=== PATIENT | male | born 1955 | race African-American/Black ===

== ENCOUNTER 2017-01-08 10:05 | Emergency (ER) | payer OTHER ==
[~2017-01-08] VITALS: Wt 86.0 kg
[~2017-01-08 10:05] MED LIST: ASPI-664 PO; BACTDS PO; BACTRIM PO; CEPH-443 PO; CEPH250S33 PO; GABA400C14 PO; IBUP-1542 PO; LANT3I SC; METH750T93 PO; MUPI22OI2 TOP; NOVO3I SC
[2017-01-08] MEDS ORDERED: SOD CHLORIDE 0.9% 1,000 ML IV STA (10:13)
[2017-01-08] MEDS ORDERED: DIAZEPAM 5 MG TAB PO ONE (10:30)
--- NOTE | 2017-01-08 11:49 | RADRPT ---
PROCEDURE: CT Brain without contrast. CLINICAL INDICATION: History of stroke, left arm pain TECHNIQUE: A CT of the brain was performed on a GE 64-slice CT scanner utilizing axial imaging fr om the skull base through the vertex without IV contrast. Multiplanar reformatted images were made. Images were reviewed on a PACS workstation. The CTDIvol is 42.3 mGy and the DLP is 720.23 mGycm. One or more of the following dose reduction techniques were used: automated exposure control, adjus tment of the mA and/or kV according to patient size, or use of iterative reconstruction technique. COMPARISON: 10/02/2015 , MRI 12/25/2015 FINDINGS: There is interval evolution of the right internal capsule infarct. The exam is degraded by motion. Mild periventricular white matter and pontine hypodensities are seen. There is no intracranial hemo rrhage, mass effect, or midline shift. No extra-axial fluid collection is seen. The ventricles and sulci are normal in size and configuration. The kennedy white matter differentiation appears well-prese rved. The posterior fossa is unremarkable.. The visualized paranasal sinuses and osseous structures are grossly unremarkable. IMPRESSION: 1. Limited due to motion. Chronic right internal capsule infarct. mild microvascular ischemic dise ase. RPTAT: HCNS Physician Gene Date Time Electronically viewed and signed by Physician Gene on 01/08/2017 11:48 CS/
[2017-01-08 11:52] LABS: CALCIUM 6.6 mg/dl (8.4-10.2); CREATININE 1.68 mg/dl (0.61-1.24); MAGNESIUM 1.6 mg/dl (1.7-2.5); POTASSIUM 3.8 mmol/L (3.5-5.1)
[2017-01-08] MEDS ORDERED: MAGNESIUM SULFATE 1 GM/D5W 100 ML IVPB ONE (12:00)
[2017-01-08] MEDS ORDERED: DIAZ-90 PO (12:16)
--- NOTE | 2017-01-08 12:55 | ERD ---
ER Documentation Chief Complaint Date/Time DATE: 01/08/17 TIME: 12:48 Chief Complaint C/O LEFT ARM "FEELING TENSE" X 1 HOUR HPI This is an extremely pleasant 61-year-old male with remote history of stroke with left-sided weakness who presents with a spasm of the left upper extremity. This occurred approximately 1 hour prior to arrival. The patient states over the past 24 hours he has been outside significantly trying to keep up with oral intake. He notes spasm that is moderate and intense to the left upper extremity that is intermittent. He denies any further weakness, no headache no falls or injury. ROS All systems reviewed and are negative except as per history of present illness. Medications Home Meds Active Scripts Diazepam* (Valium*) 5 Mg Tablet, 5 MG PO Q8 Y for MUSCLE SPASMS, #10 TAB Prov:JADA WAGONER MD 01/08/17 Reported Medications Insulin Aspart* (Novolog Insulin Pen*) 100 Unit/Ml Soln, 0 SC AC MEALS AND BEDTIME, EA 12/25/15 Insulin Glargine* (Lantus*) 100 Unit/Ml Soln, 25 UNIT SC QHS, #1 VIAL 10/02/15 Gabapentin* (Gabapentin*) 400 Mg Capsule, 800 MG PO TID, #180 CAP 05/15/15 Discontinued Reported Medications Aspirin (Low Dose Aspirin) 81 Mg Tablet.dr, 81 MG PO DAILY, #30 TAB 02/20/16 Discontinued Scripts Trimethoprim-Sulfamethoxazole* (Bactrim*) 400-80 Mg Tab, 1 TAB PO BID for 5 Days , #10 TAB Prov:SUJEY DIAZ PA-C 03/05/16 Cephalexin* (Cephalexin* Susp) 250 Mg/5 Ml Susp.recon, 500 MG PO Q8 for 14 Days , #1 BOTTLE Prov:SUJEY DIAZ PA-C 03/05/16 Mupirocin* (Bactroban*) 2% -22 Gram Oint...g., 1 APPLIC TOP BID for 14 Days, #1 EA 1 Refill Prov:CHARLES ROMAN MD 02/20/16 Sulfamethoxazole-Trimethoprim* (Bactrim* DS) 800-160 Mg Tab, 1 TAB PO DAILY for 14 Days, #28 TAB Prov:CHARLES ROMAN MD 02/20/16 Cephalexin* (Keflex*) 500 Mg Capsule, 500 MG PO TID for 14 Days, CAP Prov:CHARLES ROMAN MD 02/20/16 Ibuprofen* (Motrin*) 600 Mg Tab, 600 MG PO Q8, #30 TAB Prov:ANDREW LÓPEZ DO 02/13/16 Methocarbamol* (Robaxin*) 750 Mg Tablet, 750 MG PO TID, #30 TAB Prov:ANDREW LÓPEZ DO 02/13/16 Allergies Allergies: Coded Allergies: No Known Drug Allergies (Verified Allergy, Unknown, 01/08/17) PMhx/Soc History of Surgery: Yes (5th toe amputation,toe abcess) Anesthesia Reaction: No Hx Neurological Disorder: Yes (stroke october 2015) Hx Respiratory Disorders: No Hx Cardiac Disorders: No Hx Psychiatric Problems: No Hx Miscellaneous Medical Probl: Yes (DM) Hx Alcohol Use: Yes (occasional) Hx Substance Use: No Hx Tobacco Use: No Smoking Status: Never smoker FmHx Family History: No diabetes Physical Exam Vitals Vital Signs Date Time Temp Pulse Resp B/P Pulse Ox O2 Delivery O2 Flow Rate FiO2 01/08/17 10:13 98.9 79 18 129/71 99 Physical Exam General: Well developed, well nourished, no acute distress, appears to be having spasms of the left upper extremity Head: Normocephalic, atraumatic Eyes: Pupils equally reactive, EOM intact ENT: Moist mucous membranes Neck: Supple, no lymphadenopathy Respiratory: Lungs clear bilaterally, no distress Cardiovascular: RRR, no murmurs, rubs, or gallops Abdominal: Soft, non-tender, non-distended, no peritoneal signs : Deferred MSK: Baseline slight weakness to left upper extremity with apparent spasms. 2+ radial ulnar pulses, soft compartments Neurologic: Alert and oriented, moving all extremities, normal speech, no focal weakness, no cerebellar signs Skin: No rash Psych: Normal mood Result Diagram: 01/08/17 1050 Results 24 hrs Laboratory Tests Test 01/08/17 10:50 Sodium Level 143mmol/L Potassium Level 3.8mmol/L Chloride Level 117mmol/L Carbon Dioxide Level 20mmol/L Anion Gap 10 Blood Urea Nitrogen 24mg/dl Creatinine 1.68mg/dl Glucose Level 97mg/dl Calcium Level 6.6mg/dl Phosphorus Level 3.0mg/dl Magnesium Level 1.6mg/dl Current Medications Medications (Trade) Dose Ordered Sig/Mar Route PRN Reason Start Time Stop Time Status Last Admin Dose Admin Sodium Chloride (NS) 1,000 ml @ 1,000 mls/hr Q1H STAT IV 01/08/17 10:13 01/08/17 11:12 DC 01/08/17 10:19 Diazepam 5 mg 5 mg ONCE ONCE PO 01/08/17 10:30 01/08/17 10:31 DC 01/08/17 10:19 Magnesium Sulfate/ Dextrose (Magnesium Sulfate 1 Gm/D5W) 100 ml @ 100 mls/hr ONCE ONCE IVPB 01/08/17 12:00 01/08/17 12:59 01/08/17 12:17 Procedures/MDM EKG, MONITORS, & DIAGNOSTIC IMAGING: CT brain: Old infarct no acute infarcts or hemorrhage, per radiology read LAB INTERPRETATION: Hypomagnesemia, mild renal insufficiency MEDICAL DECISION MAKING: The patient presents with active spasming of the left upper extremity. This is likely secondary to hypertonicity related to his prior stroke versus dehydration. No evidence of acute stroke. ER COURSE: The patient CT brain and laboratory testing are unrevealing other than hypomagnesemia and mild renal insufficiency. The patient was given IV fluids, Valium with improved symptomatology. The patient is resting comfortably. The patient will benefit from outpatient follow-up with primary care physician. His magnesium was repleted in the emergency room. The patient was advised to continue hydration orally. I kept the patient and/or family informed of laboratory and diagnostic imaging results throughout the emergency room course. DISPOSITION PLAN: We discussed follow up with the patient's primary care doctor within 24 to 48 hours as needed. We also discussed return to the emergency room for worsening symptoms or worsening condition. Outpatient referral: [None required] Discharge Medications: Valium Departure Diagnosis: Primary Impression: Muscle spasm Additional Impressions: Acute renal insufficiency Hypomagnesemia Condition: Stable Patient Instructions: Muscle Spasm Additional Instructions: Call your primary care doctor TOMORROW for an appointment during the next 1 WEEK.Tell the ribbon sweatband operator that you were referred from this facility.See the doctor sooner or return here if your condition worsens before your appointment time. JADA WAGONER MD Jan 08, 2017 12:55
[2017-01-08 13:35] VITALS: BP 135/85; PULSE 78; RESP 20; TEMP 98.4
== END 2017-01-08 13:36 | disposition home or self-care (01) ==
LOC: E/R 10:05
DX: M62.838 Other muscle spasm (principal); N28.9 Disorder of kidney and ureter, unspecified; E83.42 Hypomagnesemia; E11.9 Type 2 diabetes mellitus without complications; R93.0 Abnormal findings on diagnostic imaging of skull and head, not elsewhere classified; Z79.4 Long term (current) use of insulin
CPT/HCPCS: 36415; 70450; 80048; 83735; 84100; 96374; J3475; J7030; Z7502; Z7610

== ENCOUNTER 2017-11-13 11:13 | Emergency (ER) | END 2017-11-13 16:07 | disposition home or self-care (01) ==

== ENCOUNTER 2018-09-27 11:37 | Inpatient (IN) | payer OTHER ==
[~2018-09-27] VITALS: Ht 167.6 cm; Wt 71.6 kg
[~2018-09-27 11:37] MED LIST changes: -ASPI-664 PO; -BACTDS PO; -BACTRIM PO; +CARI350T PO; -CEPH-443 PO; -CEPH250S33 PO; +DIAZ5TAB PO; -IBUP-1542 PO; -METH750T93 PO; -MUPI22OI2 TOP
[2018-09-27] MEDS ORDERED: SOD CHLORIDE 0.9% 500 ML IV STA (12:24)
[2018-09-27] MEDS ORDERED: LORAZEPAM 2 MG INJ ONE (12:47)
[2018-09-27] MEDS ORDERED: INSU100I33 SC (13:05)
[2018-09-27] MEDS ORDERED: ASPI-817 PO (13:05)
[2018-09-27] MEDS ORDERED: LORAZEPAM 2 MG INJ IV ONE (13:30)
[2018-09-27] MEDS ORDERED: LEVETIRACETAM 1000 MG (PMX) 100 ML IVPB ONE (13:30)
--- NOTE | 2018-09-27 14:38 | ERD ---
ER Documentation Chief Complaint Chief Complaint left sided weakness/numbness since last night HPI 62-year-old male with a history of right-sided stroke without chronic deficits, hypertension, diabetes presenting with left upper extremity and left lower extremity spasming, pain, and weakness. He states that this started this morni ng around 8 AM. When he woke up around 6 AM, he felt slightly dizzy with some neck pain. The spasms have been going on since then. His symptoms are constant, with associated posterior headache and left-sided neck pain. No alleviating or exacerbating factors. He has never experienced this before. He denies any recent neck injuries or any problems with his neck in the past. ROS All systems reviewed and are negative except as per history of present illness. Medications Home Meds Reported Medications Aspirin* (Aspirin* EC) 81 Mg Tablet.dr, 81 MG PO DAILY, TAB 09/27/18 Insulin Glargine,Hum.rec.anlog (Basaglar Kwikpen U-100) 100 Unit/1 Ml Insuln.pen, 20 UNIT SC QHS, EA 09/27/18 Discontinued Reported Medications Insulin Aspart* (Novolog Insulin Pen*) 100 Unit/Ml Soln, 0 SC AC MEALS AND BEDTIME, EA 12/25/15 Insulin Glargine* (Lantus*) 100 Unit/Ml Soln, 25 UNIT SC QHS, #1 VIAL 10/02/15 Gabapentin* (Gabapentin*) 400 Mg Capsule, 800 MG PO TID, #180 CAP 05/15/15 Discontinued Scripts Carisoprodol* (Soma*) 350 Mg Tablet, 350 MG PO TID PRN for MUSCLE SPASMS, #12 TAB Prov:CHARLES ROMAN MD 11/13/17 Diazepam* (Valium*) 5 Mg Tablet, 5 MG PO Q8 PRN for MUSCLE SPASMS, #10 TAB Prov:JADA WAGONER MD 01/08/17 Allergies Allergies: Coded Allergies: No Known Drug Allergies (Verified Allergy, Unknown, 09/27/18) PMhx/Soc History of Surgery: Yes (5th toe amputation,toe abcess) Anesthesia Reaction: No Hx Neurological Disorder: Yes (stroke october 2015) Hx Respiratory Disorders: No Hx Cardiac Disorders: No Hx Psychiatric Problems: No Hx Miscellaneous Medical Probl: Yes (DM) Hx Alcohol Use: Yes (occasional) Hx Substance Use: Yes (crack last used 3yrs ago) Hx Tobacco Use: Yes (quit 3 yrs ago) Smoking Status: Former smoker FmHx Family History: No diabetes Physical Exam Vitals Vital Signs Date Temp Pulse Resp B/P (MAP) Pulse Ox O2 O2 Flow FiO2 Time Delivery Rate 09/27/18 114 18 144/99 99 Room Air 14:41 (114) 09/27/18 Nasal 2.0 13:15 Cannula 09/27/18 98.2 110 16 149/85 100 Room Air 13:15 (106) 09/27/18 Nasal 2 13:15 Cannula 09/27/18 97.6 125 22 156/78 99 11:40 (104) Physical Exam Const: No acute distress Head: Atraumatic Eyes: Normal Conjunctiva, PERRLA, EOMI, no nystagmus ENT: Normal External Ears, Nose and Mouth. Neck: Full range of motion. No meningismus. No cervical spine or paraspinal muscle tenderness. Resp: Clear to auscultation bilaterally Cardio: Regular rate and rhythm, no murmurs. 2+ distal pulses in all 4 extremities. Abd: Soft, non tender, non distended. Normal bowel sounds Skin: No petechiae or rashes Back: No midline or flank tenderness Ext: No cyanosis, or edema Neur: Awake and alert, oriented x3, no facial asymmetry, normal speech, cranial nerves intact. Increased tone in left upper and left lower extremity with apparent spasming of his fingers. Rigidity with passive range of motion of left upper and left lower extremity. Right upper and right lower extremity 5 out of 5 strength, normal tone, intact sensations. Psych: Normal Mood and Affect Result Diagram: 09/27/18 1257 09/27/18 1257 Results 24 hrs Laboratory Tests Test 09/27/18 12:56 09/27/18 12:57 09/27/18 13:31 Urine Color YELLOW Urine Clarity CLEAR Urine pH 5.0 Urine Specific [place] 1.012 Urine Ketones NEGATIVE mg/dL Urine Nitrite NEGATIVE mg/dL Urine Bilirubin NEGATIVE mg/dL Urine Urobilinogen NEGATIVE mg/dL Urine Leukocyte Esterase NEGATIVE Kaye/ul Urine Hemoglobin NEGATIVE mg/dL Urine Glucose NEGATIVE mg/dL Urine Total Protein NEGATIVE mg/dl Urine Opiates Screen NEGATIVE Urine Barbiturates NEGATIVE Urine Amphetamines Screen NEGATIVE Urine Benzodiazepines Screen NEGATIVE Urine Cocaine Screen NEGATIVE Urine Cannabinoids POSITIVE White Blood Count 9.9 10^3/ul Red Blood Count 3.28 10^6/ul Hemoglobin 10.0 g/dl Hematocrit 30.5 % Mean Corpuscular Volume 93.0 fl Mean Corpuscular Hemoglobin 30.5 pg Mean Corpuscular 32.8 g/dl Hemoglobin Concent Red Cell Distribution Width 12.7 % Platelet Count 412 10^3/UL Mean Platelet Volume 9.9 fl Immature Granulocytes % 0.400 % Neutrophils % 67.0 % Lymphocytes % 25.4 % Monocytes % 4.9 % Eosinophils % 1.5 % Basophils % 0.8 % Nucleated Red Blood Cells % 0.0 /100WBC Immature Granulocytes # 0.040 10^3/ul Neutrophils # 6.6 10^3/ul Lymphocytes # 2.5 10^3/ul Monocytes # 0.5 10^3/ul Eosinophils # 0.2 10^3/ul Basophils # 0.1 10^3/ul Nucleated Red Blood Cells # 0.0 10^3/ul Prothrombin Time 11.7 Sec Prothrombin Time Ratio 0.9 INR International 0.85 Normalized Ratio Activated Partial Thromboplast 27.0 Sec Time Sodium Level 139 mmol/L Potassium Level 4.4 mmol/L Chloride Level 103 mmol/L Carbon Dioxide Level 28 mmol/L Anion Gap 8 Blood Urea Nitrogen 24 mg/dl Creatinine 1.98 mg/dl Est Glomerular Filtrat 42 mL/min Rate mL/min Glucose Level 93 mg/dl Hemoglobin A1c 6.9 % Calcium Level 8.8 mg/dl Total Bilirubin 0.3 mg/dl Direct Bilirubin 0.00 mg/dl Indirect Bilirubin 0.3 mg/dl Aspartate Amino 23 IU/L Transf (AST/SGOT) Alanine 25 IU/L Aminotransferase (ALT/SGPT) Alkaline Phosphatase 92 IU/L Troponin I < 0.012 ng/ml Total Protein 7.2 g/dl Albumin 3.8 g/dl Globulin 3.40 g/dl Albumin/Globulin Ratio 1.11 Triglycerides Level 65 mg/dl Cholesterol Level 131 mg/dl LDL Cholesterol, Calculated 65 mg/dl HDL Cholesterol 53 mg/dl Cholesterol/HDL Ratio 2.4 RATIO Bedside Glucose 77 mg/dL Current Medications Medications Dose Sig/Mar Start Time Status Last (Trade) Ordered Route PRN Stop Time Admin Dose Reason Admin Sodium 500 ml @ Q1H STAT 09/27/18 DC 09/27/18 Chloride 500 mls/hr IV 12:24 13:40 09/27/18 13:23 Lorazepam 2 mg STK-MED 09/27/18 DC (Ativan) ONCE .ROUTE 12:47 09/27/18 12:48 Lorazepam 2 mg ONCE ONCE 09/27/18 DC 09/27/18 (Ativan) IV 13:30 13:41 09/27/18 13:31 100 ml @ ONCE ONCE 09/27/18 DC 09/27/18 Levetiracetam 400 mls/hr IVPB 13:30 13:40 09/27/18 13:44 Ondansetron 4 mg ER BRIDGE 09/27/18 HCl (Zofran PRN IV 15:00 Inj) NAUSEA/VOMITI 09/28/18 14:59 NG 650 mg ER BRIDGE 09/27/18 Acetaminophen PRN PO 15:00 (Tylenol .MILD PAIN 09/28/18 14:59 Tab) 1-3 OR TEMP Procedures/MDM EMERGENT LABS AND DIAGNOSTIC STUDIES: Lab Results above were reviewed and interpreted by me. CBC: Mild chronic anemia, no evidence of infection CMP: Elevated BUN and creatinine, which seems to be chronic renal insufficiency. No evidence of clinically significant electrolyte abnormality, acidosis, acute renal failure, hypoglycemia, liver disease, or biliary obstruction Troponin within normal limits, not indicative of cardiac ischemia 12-lead EKG was interpreted by Shruti Horton MD: Sinus tachycardia with ventricular rate of 111 beats per minute Normal axis Normal intervals No acute ST or T wave changes suggestive of acute ischemia or STEMI. Radiology Results as interpreted by Radiology below were reviewed by SHui Horton MD: Chest x-ray shows no acute abnormalities CT brain shows no acute abnormalities, old strokes noted on right Initial Nursing notes reviewed. Previous Medical Records requested via the Electronic Health Record. EMERGENCY DEPARTMENT COURSE / MEDICAL DECISION MAKING: Patient is presenting with left-sided neck pain and upper and lower extremity spasming. Exam is not consistent with stroke. Differential includes but is not limited to cervical radiculopathy, focal seizures, muscle spasms. I spoke with the tele-neurologist on-call, who evaluated the patient. She also does not feel that this is an acute stroke. She recommended 2 mg IV of Ativan with resolution of the patient's symptoms. She feels that this is most likely a focal seizure secondary to old stroke. She recommended 1 g IV Keppra now and 500 mg twice daily with admission for MRI and EEG. Critical Care Time: 35 minutes Treatments/Evaluations: Close monitoring and treatment of unstable vital signs, cardiorespiratory, and neurologic status, while maintaining tight balance of fluid, respiratory, and cardiac interventions. This time includes discussing the case with the patient and the patients family. This time does not include all procedures stated elsewhere in this record. This time also includes reviewing old records, labs and radiological studies. This time includes examining and re- examining the patient. Additionally, this time also includes arranging care with admitting and consulting physicians. Accepting Care Team: Current data and ongoing care discussed. Time: Time of admission Primary Provider: Dr. Salazar Consulting: Dr. Tovar with tele-neurology Outstanding Data: none Departure Diagnosis: Primary Impression: New onset seizure Additional Impressions: Focal motor seizure History of stroke Chronic renal insufficiency Chronic kidney disease stage: unspecified stage Qualified Codes: N18.9 - Chronic kidney disease, unspecified Condition: Serious JORDYN HORTON MD September 27, 2018 14:38
[2018-09-27] MEDS ORDERED: ACETAMINOPHEN 325 MG TAB PO PRN ×2 (15:00→17:00)
[2018-09-27] MEDS ORDERED: ONDANSETRON 4 MG INJ IV PRN ×2 (15:00→17:00)
--- NOTE | 2018-09-27 15:13 | STROKE ---
Date/Time of Note Date/Time of Note DATE: 09/27/18 TIME: 15:06 Patient Information General Patient location: emergency Arrival Date Age 62 Gender male Weight 71 kg POC Glucose Glucose Result Bedside Glucose - 72 Hours Test 09/27/18 13:31 Bedside Glucose 77 mg/dL (70-220) Vital Signs Vital Signs Vital Signs Date Temp Pulse Resp B/P (MAP) Pulse Ox O2 O2 Flow FiO2 Time Delivery Rate 09/27/18 114 18 144/99 99 Room Air 14:41 (114) 09/27/18 2.0 13:15 09/27/18 98.2 13:15 Patient History Past Medical History Stroke Current Medications Allergies: Coded Allergies: No Known Drug Allergies (Verified Allergy, Unknown, 09/27/18) Labs Coagulation Labs: Coagulation Test 09/27/18 12:57 Activated Partial Thromboplast Time 27.0 Sec (23.0-35.0) History & Physical Patient History Notes Pt Hx Reviewed History of Present Illness 62yo M DM, HTN, h/o CVA with left sided weakness, walks with cane, presents with left sided neck pain since this morning and left sided body spasm and pain since 8am. Review of Systems Constitutional: no symptoms reported EENTM: no symptoms reported Respiratory: no symptoms reported Cardiovascular: no symptoms reported Gastrointestinal: no symptoms reported Genitourinary: no symptoms reported Musculoskeletal: no symptoms reported Skin: no symptoms reported Psychiatric/Neurological: no symptoms reported All Other Systems: Reviewed and Negative NIH Stroke Scale NIH Stroke Scale [id number] l4d LOC Questions: Wflid8q LOC Commands: Voeor3s t Gaze: Jyvkr0i Jjyfd8p alsy: Ladzj3d rm - Left: Ogzdf3a t: Lqyub9w eft: Xujpw0w t: Xcirp9w Zioqh4z Jkkwc0v est Language: Tikng7g tonya: Ilbhd7a Ejbjv1f 4Bd Total Score: Xfehj8o Date/Time Recorded DATE: 09/27/18 TIME: 15:06 Submitted By Renea Tovar t-PA Imaging Review Imaging Reviewed: Yes Date/Time Imaging Reviewed DATE: 09/27/18 TIME: 15:06 Imaging Findings chronic ischemic changes t-PA Administration Recommendation: No Weight 71 kg Recommedation submitted by Renae Tovar Reason t-PA not Recommended outside time window t-PA Not Recommended Date/Time 12:40 09/27/18 Recommendations Impression Diagnosis focal seizure with status epilepticus Recommendation 62yo M presents with acute onset left sided weakness, pain, and spasms. Neurological exam is notable for left arm and leg drift, left arm and leg spasticity, left face, arm, and leg numbness. I believe the patient is having a focal seizure, in partial status epilepticus. I recommended and patient was administered total Ativan 2mg IV, and patient's weakness and spasticity improved significantly. I recommend further workup include MRI Brain with and without gadolinium, MRA of the head without gadolinium, MRA of the neck with gadolinium, transthoracic echocardiogram, and EEG. I recommend Keppra 1000mg IV x 1 then 500mg BID. [id number] Diagnostic Labs: Ftfdt3a Lipid Proile Hgb A1C CMP CBC w/Diff Coags [id number] Therapy: Vlwnn0w Physical Therapy Speech Therapy Occupational Therapy [id number] [facility] Recommendations: Jmbdz7y Bedside Swallow Evaluation Pnumatic Compression Devices Stroke Education Smoking Education RENEA TOVAR September 27, 2018 15:13
--- NOTE | 2018-09-27 16:43 | HP ---
Date/Time of Note Date/Time of Note DATE: 09/27/18 TIME: 16:38 Assessment/Plan VTE Prophylaxis Pharmacological prophylaxis: LMWH Lines/Catheters IV Catheter Type (from Nrs): Peripheral IV Assessment/Plan Hospital Course 1. Left arm spasms and weakness CT brain shows chronic small vessel ischemia and chronic right thalamic and internal capsule lacunar infarcts Rule out seizures, EEG and MRI recommended per tele-neurology Neurology consultation obtained Aspirin, statin Echo and carotid ultrasound 2. Diabetes Sliding scale 3. Acute kidney injury for CKD Patient does appear clinically dry, IV fluids 4. Normocytic anemia like secondary chronic disease Prophylaxis: Lovenox Result Diagram: 09/27/18 1257 09/27/18 1257 Results 24hrs Laboratory Tests Test 09/27/18 12:56 09/27/18 12:57 09/27/18 13:31 Urine Color YELLOW Urine Clarity CLEAR Urine pH 5.0 Urine Specific [place] 1.012 Urine Ketones NEGATIVE Urine Nitrite NEGATIVE Urine Bilirubin NEGATIVE Urine Urobilinogen NEGATIVE Urine Leukocyte Esterase NEGATIVE Urine Hemoglobin NEGATIVE Urine Glucose NEGATIVE Urine Total Protein NEGATIVE Urine Opiates Screen NEGATIVE Urine Barbiturates NEGATIVE Urine Amphetamines Screen NEGATIVE Urine Benzodiazepines Screen NEGATIVE Urine Cocaine Screen NEGATIVE Urine Cannabinoids POSITIVE White Blood Count 9.9 Red Blood Count 3.28 L Hemoglobin 10.0 L Hematocrit 30.5 L Mean Corpuscular Volume 93.0 Mean Corpuscular Hemoglobin 30.5 Mean Corpuscular Hemoglobin Concent 32.8 Red Cell Distribution Width 12.7 Platelet Count 412 Mean Platelet Volume 9.9 Immature Granulocytes % 0.400 Neutrophils % 67.0 Lymphocytes % 25.4 Monocytes % 4.9 Eosinophils % 1.5 Basophils % 0.8 Nucleated Red Blood Cells % 0.0 Immature Granulocytes # 0.040 H Neutrophils # 6.6 Lymphocytes # 2.5 Monocytes # 0.5 Eosinophils # 0.2 Basophils # 0.1 Nucleated Red Blood Cells # 0.0 Prothrombin Time 11.7 L Prothrombin Time Ratio 0.9 INR International Normalized Ratio 0.85 Activated Partial Thromboplast Time 27.0 Sodium Level 139 Potassium Level 4.4 Chloride Level 103 Carbon Dioxide Level 28 Anion Gap 8 Blood Urea Nitrogen 24 H Creatinine 1.98 H Est Glomerular Filtrat Rate mL/min 42 L Glucose Level 93 Hemoglobin A1c 6.9 H Calcium Level 8.8 Total Bilirubin 0.3 Direct Bilirubin 0.00 Indirect Bilirubin 0.3 Aspartate Amino Transf (AST/SGOT) 23 Alanine Aminotransferase (ALT/SGPT) 25 Alkaline Phosphatase 92 Troponin I < 0.012 Total Protein 7.2 Albumin 3.8 Globulin 3.40 H Albumin/Globulin Ratio 1.11 Triglycerides Level 65 Cholesterol Level 131 LDL Cholesterol, Calculated 65 HDL Cholesterol 53 Cholesterol/HDL Ratio 2.4 Bedside Glucose 77 HPI/ROS Admit Date/Time Admit Date/Time September 27, 2018 Hx of Present Illness Patient is a 62-year-old male with history of CVA and diabetes. Patient reportedly had shaking of his left arm earlier today, telemetry neurology was consulted in the ER and recommendation was EEG and MRI to evaluate for possible stroke. Patient states that he does not recall the episode occurring and denies confusion after the shaking. Patient does report residual weakness in the left arm. Patient denies any history of seizures. Patient has no other complaints this time. ROS Constitutional: no complaints, improved Eyes: no complaints ENT: no complaints Respiratory: no complaints Cardiovascular: no complaints Gastrointestinal: no complaints Genitourinary: no complaints Musculoskeletal: no complaints Skin: no complaints Neurologic: focal-weakness (Left arm) Endocrine: no complaints Lymphatic: no complaints Psychological: no complaints, nl mood/affect Immunologic: no complaints PMH/Family/Social Past Medical History As per HPI Medications Current Medications Ondansetron HCl (Zofran Inj) 4 mg ER BRIDGE PRN IV NAUSEA/VOMITING; Start 09/27/18 at 15:00; Stop 09/28/18 at 14:59 Acetaminophen (Tylenol Tab) 650 mg ER BRIDGE PRN PO .MILD PAIN 1-3 OR TEMP; Start 09/27/18 at 15:00; Stop 09/28/18 at 14:59 Coded Allergies: No Known Drug Allergies (Verified Allergy, Unknown, 09/27/18) Past Surgical History Past Surgical Hx: no surgical history Family History Significant Family History: no pertinent family hx Social History Alcohol Use: rarely Smoking Status: Former smoker Drug Use: none Exam/Review of Systems Vital Signs Vitals Vital Signs Date Temp Pulse Resp B/P (MAP) Pulse Ox O2 O2 Flow FiO2 Time Delivery Rate 09/27/18 114 18 144/99 99 Room Air 14:41 (114) 09/27/18 2.0 13:15 09/27/18 98.2 13:15 Exam Constitutional: alert, oriented Respiratory: clear to auscultation Cardiovascular: regular rate and rhythm Gastrointestinal: soft; No distended Musculoskeletal: nl extremities to inspection PASHA BRADEN September 27, 2018 16:42
[2018-09-27] MEDS ORDERED: DOCUSATE SODIUM 100 MG CAP PO PRN (17:00)
[2018-09-27] MEDS ORDERED: ZOLPIDEM 5 MG TAB PO PRN (17:00)
[2018-09-27] MEDS ORDERED: NACL 0.9% 3 ML SYG IV SCH (17:00)
[2018-09-27] MEDS ORDERED: HYDROCODONE/APAP (5/325) TAB PO PRN (17:00)
[2018-09-27] MEDS ORDERED: GLUCAGON 1 MG INJ IM PRN (17:30)
[2018-09-27] MEDS ORDERED: GLUCOSE GEL 15 GRAM TUBE BUCCAL PRN (17:30)
[2018-09-27] MEDS ORDERED: DEXTROSE 50% 50 ML SYRINGE IV PRN ×2 (17:30)
[2018-09-27] MEDS ORDERED: GLUCOSE GEL 15 GRAM TUBE PO PRN ×2 (17:30)
[2018-09-27] MEDS: INSULIN ASPART [NOVOLOG] 3 ML PEN SC SCH ×2 (17:50→21:19)
[2018-09-27 17:51] VITALS: BP 189/111; PULSE 111; RESP 20
[2018-09-27 17:59] VITALS: Ht 167.6 cm; Wt 71.6 kg
[2018-09-27] MEDS: SOD CHLORIDE 0.9% 1,000 ML IV SCH (18:03)
[2018-09-27] MEDS ORDERED: LABETALOL HCL 20MG INJ IV PRN (18:30)
[2018-09-27 18:50] VITALS: BP 156/74; PULSE 116
[2018-09-27 20:00] VITALS: PULSE 107
[2018-09-27 20:39] VITALS: BP 152/74; PULSE 106; RESP 18
[2018-09-27] MEDS ORDERED: INSULIN GLARGINE [LANtus] 3 ML PEN SC SCH (21:00)
[2018-09-27] MEDS: morphine 2 MG INJ IV PRN (21:18)
[2018-09-28] VITALS (8 sets, daily range): BP systolic 118–167; BP diastolic 60–88; PULSE 97–113; RESP 16–18
[2018-09-28] MEDS ORDERED: ACCU-CHEK XX SCH (02:00)
[2018-09-28] MEDS: SOD CHLORIDE 0.9% 1,000 ML IV SCH (03:08)
--- NOTE | 2018-09-28 06:43 | EEG ---
EEG NOTE Report Details DATE OF TEST: 09/27/18 HISTORY: The patient is a 62-year-old M who presents with arm shaking and weakness. This EEG is requested to evaluate for an epileptic disorder. SEDATION: None. CONDITIONS OF RECORDING: This EEG was recorded digitally on the [employer] machine, using the International 10-20 System of electrodes plus anterior temporals and [place]. STATES SAMPLED: Wakefulness and drowsiness. FINDINGS: During wakefulness, there is a 9 Hz posterior dominant rhythm, which attenuates normally with eye opening. There is a normal [id number] frequency-amplitude gradient. The remainder of the awake background is normal. Photic stimulation does not elicit any definite driving responses or e pileptiform discharges. Hyperventilation was not performed. The patient became drowsy but did not pass into sleep. No asymmetries, focal abnormalities or epileptiform discharges were seen. IMPRESSION: Normal electroencephalogram during wakefulness and drowsiness. COMMENT: A normal EEG does not of itself rule out an epileptic disorder, especially if sleep is not captured, but may decrease the probability of one depending on clinical context. EM RODRIGES September 28, 2018 06:43
[2018-09-28] MEDS: INSULIN ASPART [NOVOLOG] 3 ML PEN SC SCH ×2 (07:55→11:50)
[2018-09-28] MEDS: morphine 2 MG INJ IV PRN (08:46)
[2018-09-28] MEDS ORDERED: ENOXAPARIN 40 MG/0.4 ML SYG SC SCH (09:00)
[2018-09-28] MEDS ORDERED: ASPIRIN (EC) 81 MG TAB PO SCH (09:00)
--- NOTE | 2018-09-28 12:09 | CONS ---
Assessment/Plan Assessment/Plan Hospital Course 62 yo M with hx of CVA and multiple other comorbidities who presents for evaluation of episodic L arm shaking and weakness... for which neurology is consulted. The clinical picture could be consistent with focal motor seizures. MRI brain is without acute intracranial pathology, though notable for old R thalamic and internal capsule infarcts. EEG is unrevealing. P: Start empiric trial of trileptal 300mg BID for at least 3 months Ativan IV PRN prolonged seizure or for cluster PT/OT as necessary Other medical management per primary Will follow clinically Consultation Date/Type/Reason Admit Date/Time September 27, 2018 Type of Consult Neurology Requesting Provider: PASHA BRADEN Date/Time of Note DATE: 09/28/18 TIME: 12:09 Hx of Present Illness 62 yo M with hx of CVA and diabetes who presented to the ED with complaints of L arm shaking and weakness. History was obtained from pt and chart review. He continues to endorse L arm weakness. Denies other focal sx currently. It is additionally elsewhere noted: Hx of Present Illness Patient is a 62-year-old male with history of CVA and diabetes. Patient reportedly had shaking of his left arm earlier today, telemetry neurology was consulted in the ER and recommendation was EEG and MRI to evaluate for possible stroke. Patient states that he does not recall the episode occurring and denies confusion after the shaking. Patient does report residual weakness in the left arm. Patient denies any history of seizures. Patient has no other complaints this time. negative unless noted otherwise in HPI Exam/Review of Systems Exam Vitals Vital Signs Date Temp Pulse Resp B/P (MAP) Pulse Ox O2 O2 Flow FiO2 Time Delivery Rate 09/28/18 98.0 110 18 167/77 99 Room Air 11:29 (107) 09/27/18 2.0 13:15 Intake and Output 09/27/18 09/27/18 09/28/18 1515:00 23:00 07:00 IntakeIntake Total 600 ml 1500 ml OutputOutput Total 600 ml BalanceBalance 0 ml 1500 ml Exam PE: Gen Appearance: No Apparent Distress HEENT: Normocephalic Cardiovascular: Regular rate Lungs: Clear bilaterally Abdomen: Soft Extremities: Dry NE: The patient was alert and oriented. Language was normal. Fund of knowledge was normal. Pupils were equal and reactive to light. There was no afferent pupillary defect. Visual benson were normal. Funduscopic examination was limited. Extra-ocular movements were full. Ptosis was absent. There was no nystagmus. Facial sensation was normal. Face was symmetric with normal strength. Hearing was intact. Palate movements were normal. Neck strength was normal. There was normal tongue bulk and speed of movement. Tone was normal. Muscle bulk was normal. I did not see fasciculations. Arms and legs were weak on the L Vibration sensation was trevor was diminished on the L. Temperature and pinprick sensation was normal. Rapid alternating movements were normal. There was no dysmetria. There was no intention tremor. Gait was deferred due to bedrest. Arm and leg reflexes were 2+ and symmetric. Merino's sign was absent. Plantar responses were flexor. Results Result Diagram: 09/28/1862109/28/18 06 Results 24hrs Laboratory Tests Test 09/27/18 12:56 09/27/18 12:57 09/27/18 13:31 09/27/18 17:47 Urine Color YELLOW Urine Clarity CLEAR Urine pH 5.0 Urine Specific 1.012 [place] Urine Ketones NEGATIVE Urine Nitrite NEGATIVE Urine Bilirubin NEGATIVE Urine Urobilinogen NEGATIVE Urine Leukocyte NEGATIVE Esterase Urine Hemoglobin NEGATIVE Urine Glucose NEGATIVE Urine Total Protein NEGATIVE Urine Opiates Screen NEGATIVE Urine Barbiturates NEGATIVE Urine Amphetamines NEGATIVE Screen Urine NEGATIVE Benzodiazepines Screen Urine Cocaine Screen NEGATIVE Urine Cannabinoids POSITIVE White Blood Count 9.9 Red Blood Count 3.28 L Hemoglobin 10.0 L Hematocrit 30.5 L Mean Corpuscular 93.0 Volume Mean Corpuscular 30.5 Hemoglobin Mean Corpuscular 32.8 Hemoglobin Concent Red Cell 12.7 Distribution Width Platelet Count 412 Mean Platelet Volume 9.9 Immature 0.400 Granulocytes % Neutrophils % 67.0 Lymphocytes % 25.4 Monocytes % 4.9 Eosinophils % 1.5 Basophils % 0.8 Nucleated Red Blood 0.0 Cells % Immature 0.040 H Granulocytes # Neutrophils # 6.6 Lymphocytes # 2.5 Monocytes # 0.5 Eosinophils # 0.2 Basophils # 0.1 Nucleated Red Blood 0.0 Cells # Prothrombin Time 11.7 L Prothrombin Time 0.9 Ratio INR International 0.85 Normalized Ratio Activated 27.0 Partial Thromboplast Time Sodium Level 139 Potassium Level 4.4 Chloride Level 103 Carbon Dioxide Level 28 Anion Gap 8 Blood Urea Nitrogen 24 H Creatinine 1.98 H Est Glomerular 42 L Filtrat Rate mL/min Glucose Level 93 Hemoglobin A1c 6.9 H Calcium Level 8.8 Total Bilirubin 0.3 Direct Bilirubin 0.00 Indirect Bilirubin 0.3 Aspartate Amino 23 Transf (AST/SGOT) Alanine 25 Aminotransferase (AL T/SGPT) Alkaline Phosphatase 92 Troponin I < 0.012 Total Protein 7.2 Albumin 3.8 Globulin 3.40 H Albumin/Globulin 1.11 Ratio Triglycerides Level 65 Cholesterol Level 131 LDL Cholesterol, 65 Calculated HDL Cholesterol 53 Cholesterol/HDL 2.4 Ratio Bedside Glucose 77 137 Test 09/27/18 21:10 09/28/18 02:37 09/28/18 06:22 09/28/18 07:52 Bedside Glucose 193 98 57 L White Blood Count 10.2 Red Blood Count 3.19 L Hemoglobin 9.7 L Hematocrit 29.6 L Mean Corpuscular 92.8 Volume Mean Corpuscular 30.4 Hemoglobin Mean Corpuscular 32.8 Hemoglobin Concent Red Cell 12.3 Distribution Width Platelet Count 389 Mean Platelet Volume 9.2 Immature 0.400 Granulocytes % Neutrophils % 63.2 Lymphocytes % 27.6 Monocytes % 6.4 Eosinophils % 1.7 Basophils % 0.7 Nucleated Red Blood 0.0 Cells % Immature 0.040 H Granulocytes # Neutrophils # 6.5 Lymphocytes # 2.8 Monocytes # 0.7 Eosinophils # 0.2 Basophils # 0.1 Nucleated Red Blood 0.0 Cells # Sodium Level 140 Potassium Level 4.9 Chloride Level 107 Carbon Dioxide Level 28 Anion Gap 5 Blood Urea Nitrogen 21 H Creatinine 1.83 H Est Glomerular 46 L Filtrat Rate mL/min Glucose Level 63 #L Hemoglobin A1c 7.1 H Calcium Level 8.8 Phosphorus Level 3.8 Magnesium Level 1.7 Test 09/28/18 08:36 09/28/18 08:53 09/28/18 11:34 Bedside Glucose 151 177 107 Medications Medication Current Medications Sodium Chloride 1,000 ml @ 100 mls/hr Q10H IV Last administered on 09/28/18at 03:08; Admin Dose 100 MLS/HR; Start 09/27/18 at 16:38 IV Flush (NS 3 ml) 3 ml PER PROTOCOL IV ; Start 09/27/18 at 17:00 Ondansetron HCl (Zofran Inj) 4 mg Q6H PRN IV NAUSEA/VOMITING; Start 09/27/18 at 17:00 Acetaminophen (Tylenol Tab) 650 mg Q6H PRN PO .PAIN 1-3 OR TEMP; Start 09/27/18 at 17:00 Acetaminophen/ Hydrocodone Bitart ([place] (5/325)) 1 tab Q6H PRN PO .MOD PAIN 4- 6; Start 09/27/18 at 17:00 Morphine Sulfate (morphine) 2 mg Q4H PRN IV .SEVERE PAIN 7-10 Last administered on 09/28/18at 08:46; Admin Dose 2 MG; Start 09/27/18 at 17:00 Docusate Sodium (Colace) 100 mg Q12H PRN PO .CONSTIPATION; Start 09/27/18 at 17:00 Zolpidem Tartrate (Ambien) 5 mg QHS PRN PO .INSOMNIA Last administered on at 01:44; Admin Dose 5 MG; Start 09/27/18 at 17:00 Enoxaparin Sodium (Lovenox) 40 mg DAILY SC Last administered on 09/28/18at 08:55; Admin Dose 40 MG; Start 09/28/18 at 09:00 Aspirin (Halfprin) 81 mg DAILY PO Last administered on 09/28/18at 08:46; Admin Dose 81 MG; Start 09/28/18 at 09:00 Insulin Glargine (Lantus) 20 unit QHS SC Last administered on 09/27/18at 21:16; Admin Dose 20 UNIT; Start 09/27/18 at 21:00 Diagnostic Test (Pha) (Accu-Chek) 1 ea 02 XX Last administered on 09/28/18at 02: 41; Admin Dose 1 EA; Start 09/28/18 at 02:00 Insulin Aspart (Novolog Insulin Pen) NOVOLOG *MILD* ALGORITHM WITH MEALS BEDTIME SC Last administered on 09/27/18at 21:19; Admin Dose 1 UNIT; Start 09/27/18 at 17:55 Miscellaneous Information 1 ea NOTE XX ; Start 09/27/18 at 17:30 Glucose (Glutose) 15 gm Q15M PRN PO DECREASED GLUCOSE; Start 09/27/18 at 17:30 Glucose (Glutose) 22.5 gm Q15M PRN PO DECREASED GLUCOSE; Start 09/27/18 at 17:30 Dextrose (D50w Syringe) 25 ml Q15M PRN IV DECREASED GLUCOSE; Start 09/27/18 at 17:30 Dextrose (D50w Syringe) 50 ml Q15M PRN IV DECREASED GLUCOSE; Start 09/27/18 at 17:30 Glucagon (Glucagen) 1 mg Q15M PRN IM DECREASED GLUCOSE; Start 09/27/18 at 17:30 Glucose (Glutose) 15 gm Q15M PRN BUCCAL DECREASED GLUCOSE; Start 09/27/18 at 17:30 Labetalol HCl (Labetalol) 20 mg Q4H WHILE AWAKE PRN IV ELEVATED BLOOD PRESSURE Last administered on 09/27/18at 18:33; Admin Dose 20 MG; Start 09/27/18 at 18:30 Past Medical History reviewed Home Meds Reported Medications Aspirin* (Aspirin* EC) 81 Mg Tablet.dr, 81 MG PO DAILY, TAB 09/27/18 Insulin Glargine,Hum.rec.anlog (Basaglar Kwikpen U-100) 100 Unit/1 Ml Insuln.pen, 20 UNIT SC QHS, EA 09/27/18 Discontinued Reported Medications Insulin Aspart* (Novolog Insulin Pen*) 100 Unit/Ml Soln, 0 SC AC MEALS AND BEDTIME, EA 12/25/15 Insulin Glargine* (Lantus*) 100 Unit/Ml Soln, 25 UNIT SC QHS, #1 VIAL 10/02/15 Gabapentin* (Gabapentin*) 400 Mg Capsule, 800 MG PO TID, #180 CAP 05/15/15 Discontinued Scripts Carisoprodol* (Soma*) 350 Mg Tablet, 350 MG PO TID PRN for MUSCLE SPASMS, #12 TAB Prov:CHARLES ROMAN MD 11/13/17 Diazepam* (Valium*) 5 Mg Tablet, 5 MG PO Q8 PRN for MUSCLE SPASMS, #10 TAB Prov:JADA WAGONER MD 01/08/17 Medications Current Medications Sodium Chloride 1,000 ml @ 100 mls/hr Q10H IV Last administered on 09/28/18at 03:08; Admin Dose 100 MLS/HR; Start 09/27/18 at 16:38 IV Flush (NS 3 ml) 3 ml PER PROTOCOL IV ; Start 09/27/18 at 17:00 Ondansetron HCl (Zofran Inj) 4 mg Q6H PRN IV NAUSEA/VOMITING; Start 09/27/18 at 17:00 Acetaminophen (Tylenol Tab) 650 mg Q6H PRN PO .PAIN 1-3 OR TEMP; Start 09/27/18 at 17:00 Acetaminophen/ Hydrocodone Bitart ([place] (5/325)) 1 tab Q6H PRN PO .MOD PAIN 4- 6; Start 09/27/18 at 17:00 Morphine Sulfate (morphine) 2 mg Q4H PRN IV .SEVERE PAIN 7-10 Last administered on 09/28/18at 08:46; Admin Dose 2 MG; Start 09/27/18 at 17:00 Docusate Sodium (Colace) 100 mg Q12H PRN PO .CONSTIPATION; Start 09/27/18 at 17:00 Zolpidem Tartrate (Ambien) 5 mg QHS PRN PO .INSOMNIA Last administered on 09/28/18at 01:44; Admin Dose 5 MG; Start 09/27/18 at 17:00 Enoxaparin Sodium (Lovenox) 40 mg DAILY SC Last administered on 09/28/18at 08:55; Admin Dose 40 MG; Start 09/28/18 at 09:00 Aspirin (Halfprin) 81 mg DAILY PO Last administered on 09/28/18at 08:46; Admin Dose 81 MG; Start 09/28/18 at 09:00 Insulin Glargine (Lantus) 20 unit QHS SC Last administered on 09/27/18at 21:16; Admin Dose 20 UNIT; Start 09/27/18 at 21:00 Diagnostic Test (Pha) (Accu-Chek) 1 ea 02 XX Last administered on 09/28/18at 02:41; Admin Dose 1 EA; Start 09/28/18 at 02:00 Insulin Aspart (Novolog Insulin Pen) NOVOLOG *MILD* ALGORITHM WITH MEALS BEDTIME SC Last administered on 09/27/18at 21:19; Admin Dose 1 UNIT; Start 09/27/18 at 17:55 Miscellaneous Information 1 ea NOTE XX ; Start 09/27/18 at 17:30 Glucose (Glutose) 15 gm Q15M PRN PO DECREASED GLUCOSE; Start 09/27/18 at 17:30 Glucose (Glutose) 22.5 gm Q15M PRN PO DECREASED GLUCOSE; Start 09/27/18 at 17:30 Dextrose (D50w Syringe) 25 ml Q15M PRN IV DECREASED GLUCOSE; Start 09/27/18 at 17:30 Dextrose (D50w Syringe) 50 ml Q15M PRN IV DECREASED GLUCOSE; Start 09/27/18 at 17:30 Glucagon (Glucagen) 1 mg Q15M PRN IM DECREASED GLUCOSE; Start 09/27/18 at 17:30 Glucose (Glutose) 15 gm Q15M PRN BUCCAL DECREASED GLUCOSE; Start 09/27/18 at 17:30 Labetalol HCl (Labetalol) 20 mg Q4H WHILE AWAKE PRN IV ELEVATED BLOOD PRESSURE Last administered on 09/27/18at 18:33; Admin Dose 20 MG; Start 09/27/18 at 18:30 Allergies: Coded Allergies: No Known Drug Allergies (Verified Allergy, Unknown, 09/27/18) Past Surgical History reviewed Past Surgical Hx: no surgical history Social History reviewed Alcohol Use: rarely Smoking Status: Former smoker Drug Use: none VIJAYA MANCINI NP September 28, 2018 12:09
[2018-09-28] MEDS ORDERED: OXCA300T41 PO (15:14)
[2018-09-28] MEDS ORDERED: ATOR20TA38 PO (15:14)
--- NOTE | 2018-09-28 15:16 | PDOCDIS ---
Discharge Instructions CONDITION [id number] Patient Condition: [id number] Good HOME CARE INSTRUCTIONS: [id number] Diet Instructions: Aufbh5i Modified Fat ACTIVITY: [id number] Activity Restrictions: [id number] Slowly Increase Activity FOLLOW UP/APPOINTMENTS Follow-up Plan FOLLOW UP WITH YOUR PRIMARY CARE PHYSICIAN IN 1-2 WEEKS, follow-up with a neurologist PASHA BRADEN September 28, 2018 15:16
--- NOTE | 2018-09-28 15:20 | DS ---
Date/Time of Note Date/Time of Note DATE: 09/28/18 TIME: 15:16 Discharge Summary Admission/Discharge Info Admit Date/Time September 27, 2018 at 14:38 Discharge Date/Time September 28, 2018 Discharge Diagnosis 1. Left arm spasms and weakness CT brain shows chronic small vessel ischemia and chronic right thalamic and internal capsule lacunar infarcts MRI shows no acute pathology, old right thalamic and internal capsule infarct noted EEG with no significant findings Carotid ultrasound with no evidence of significant stenosis PT eval appreciated, patient back to baseline, no new DME needed Neurology consultation appreciated, recommendation is for trial of Trileptal Continue home aspirin, have prescribed statin 2. Diabetes Continue home regimen 3. Likely CKD Outpatient monitoring 4. Normocytic anemia like secondary chronic disease and CKD Patient Condition: Good Hospital Course Patient is a 62-year-old male with history of CVA and diabetes. Patient reportedly had shaking of his left arm with subsequent weakness, telemetry neurology was consulted in the ER and recommendation was EEG and MRI to evaluate for possible stroke eval for seizure. EEG was unremarkable and MRI showed old right thalamic and internal capsule infarct. Patient was seen by neurology and her condition was of trial of Trileptal. Patient was seen by PT and was back to his baseline functional status, no new DME skilled PT needs was indicated. Patient stable for DC, the day of discharge patient's vitals, labs and physical exam are stable. Patient's strength in left arm had improved on the day of discharge and was back to baseline. Home Meds Active Scripts Atorvastatin Calcium* (Atorvastatin Calcium*) 20 Mg Tablet, 20 MG PO QHS, #30 TAB Prov:PASHA BRADEN 09/28/18 Oxcarbazepine* (Oxcarbazepine*) 300 Mg Tablet, 300 MG PO BID, #60 TAB 1 Refill Prov:PASHA BRADEN 09/28/18 Reported Medications Aspirin* (Aspirin* EC) 81 Mg Tablet., 81 MG PO DAILY, TAB 09/27/18 Insulin Glargine,Hum.rec.anlog (Basaglar Kwikpen U-100) 100 Unit/1 Ml Insuln.pen, 20 UNIT SC QHS, EA 09/27/18 Discontinued Reported Medications Insulin Aspart* (Novolog Insulin Pen*) 100 Unit/Ml Soln, 0 SC AC MEALS AND BEDTIME, EA 12/25/15 Insulin Glargine* (Lantus*) 100 Unit/Ml Soln, 25 UNIT SC QHS, #1 VIAL 10/02/15 Gabapentin* (Gabapentin*) 400 Mg Capsule, 800 MG PO TID, #180 CAP 05/15/15 Discontinued Scripts Carisoprodol* (Soma*) 350 Mg Tablet, 350 MG PO TID PRN for MUSCLE SPASMS, #12 TAB Prov:CHARLES ROMAN MD 11/13/17 Diazepam* (Valium*) 5 Mg Tablet, 5 MG PO Q8 PRN for MUSCLE SPASMS, #10 TAB Prov:JADA WAGONER MD 01/08/17 Follow-up Plan FOLLOW UP WITH YOUR PRIMARY CARE PHYSICIAN IN 1-2 WEEKS, follow-up with a neurologist Primary Care Provider [facility] Time spent on discharge: > 30 minutes PASHA BRADEN September 28, 2018 15:20
[2018-09-28] MEDS ORDERED: OXCARBAZEPINE 300 MG TAB PO SCH (21:00)
--- NOTE | 2018-09-30 16:28 | RADRPT ---
Echocardiogram Report Patient Name: JASSI PAULPatient ID: [id number] : 1955 (62y 10m)Study Date: 09/28/2018 8:58:29 AM Gender: Kathyacession #: [id number] Tech: Maikol Garcia [facility] Location: [facility] Ref.Physician: PASHA BRADEN Height(Cm): BSA: Weight(Kg): Quality: Technically Difficult StudyOrder Physician: PASHA BRADEN Account #: Procedures: Echocardiographic Report: Transthoracic echocardiogram with complete 2D, M-Mode, and doppler examination. Indications: Cerebrovascular Accident. Measurements: 2D/M Mode Doppler Measurement Value Normal Range Measurement Value Normal Range LVIDd 2D 3.8 [ 4.2 - 5.8 ] cm AV Peak John 1.2 [ 100.0 - 170.0 ] cm/sec LVIDs 2D 3.1 [ 2.5 - 4.0 ] cm AV Peak PG 6.0 [ 2.0 - 9.0 ] mmHg LVPWd 2D 0.9 [ 0.6 - 1.0 ] cm LVOT Peak John 1.0 [ 70.0 - 110.0 ] cm/sec IVSd 2D 1.0 [ 0.6 - 1.0 ] cm LVOT Peak PG 4.0 [ 2.0 - 6.0 ] mmHg AoR Diam 2D 2.3 [ 2.6 - 3.4 ] cm MV E Peak John 1.1 [ 60.0 - 130.0 ] cm/sec EDV 2D 60.4 [ 62.0 - 150.0 ] ml MV A Peak John 1.4 [ 100.0 - 120.0 ] cm/sec ESV 2D 37.9 [ 21.0 - 61.0 ] ml MV E/A 0.8 [ 0.8 - 1.5 ] ratio EF 2D 37.3 [ 52.0 - 72.0 ] percent MV Decel Time 130 [ 104 - 258 ] msec LA Dimen 2D 3.2 [ 3.0 - 4.0 ] cm Lat E` John 0.1 [ 10.0 - 15.0 ] cm/sec Lateral E/E` 13.3 [ 1.0 - 2.0 ] ratio MV E/A 0.8 [ 0.8 - 1.5 ] ratio RA Pressure 3.0 mmHg Findings: Left Ventricle: Normal left ventricular systolic function. Normal left ventricular cavity size. Normal left ventricular wall thickness. Ejection fraction is visually estimated at 60 %. Tissue Doppler/Mitral Doppler indices are consistent with impaired relaxation (Stage I diastolic dysfunction). Right Ventricle: Normal right ventricular size. Normal right ventricular systolic function. Left Atrium: The left atrium is normal in size. Right Atrium: The right atrium is normal in size. Mitral Valve: Mild mitral leaflet calcification. Mild mitral annular calcification. Trace mitral regurgitation. Aortic Valve: No hemodynamically significant aortic stenosis by doppler. Aortic cusps appear mildly calcified. Tricuspid Valve: Normal appearance of the tricuspid valve. Unable to obtain RVSP due to minimal presence of tricuspid regurgitation. Pulmonic Valve: Pulmonic valve not well visualized. Pericardium: Normal pericardium with no significant pericardial effusion. Aorta: Normal aortic root. IVC: Normal size and normal respiratory collapse consistent with normal right atrial pressure. Conclusions: Normal left ventricular systolic function. Grade 1 diastolic dysfunction. Trace mitral regurgitation. Electronically Signed By: Lisas Garcia 2018-09-30 16:28:28 PDT
== END 2018-09-28 17:29 | disposition home or self-care (01) | DRG 101 ==
LOC: E/R 11:37 → TEL 14:38
PROVIDERS: ADMIT Internal Medicine; ATTEND Internal Medicine
DX: R56.9 Unspecified convulsions (principal); N17.9 Acute kidney failure, unspecified; M62.81 Muscle weakness (generalized); M62.838 Other muscle spasm; E11.9 Type 2 diabetes mellitus without complications; N18.9 Chronic kidney disease, unspecified; D63.1 Anemia in chronic kidney disease; Z86.73 Personal history of transient ischemic attack (TIA), and cerebral infarction without residual deficits; Z79.4 Long term (current) use of insulin; Z79.82 Long term (current) use of aspirin
CPT/HCPCS: 36415; 70450; 70551; 71045; 80048; 80053; 80061; 80307; 81003; 82962; 83036; 83735; 84100; 84484; 85025; 85610; 85730; 87081; 93005; 93306; 93880; 95819; 96365; 96375; 97161; J1650; J1815; J1953; J2060; J2270; J7030; J7040